=== PATIENT | male | born 1995 | race Caucasian/White ===

== ENCOUNTER 2016-11-23 11:23 | Emergency (ER) | payer OTHER ==
--- NOTE | 2016-11-23 11:50 | EDM.PDOC ---
ED HPI GENERAL MEDICAL PROBLEM - General Chief Complaint: Skin Complaint Stated Complaint: INFECTION Time Seen by Provider: 11/23/16 11:30 Source of Information: Reports: Patient History Limitations: Reports: No Limitations - History of Present Illness INITIAL COMMENTS - FREE TEXT/NARRATIVE: History of present illness: [21-year-old male presents with complaint of a small abscess at the top of his buttocks right at the crease at the base of his spine. Also complains of a right sided ear infection.] Review of systems: As per history of present illness and below otherwise all systems reviewed and negative. Past medical history: As per history of present illness and as reviewed below otherwise noncontributory. Surgical history: As per history of present illness and as reviewed below otherwise noncontributory. Social history: No reported history of drug or alcohol abuse. Family history: As per history of present illness and as reviewed below otherwise noncontributory. Physical exam: HEENT: Atraumatic, normocephalic, pupils reactive, negative for conjunctival pallor or scleral icterus, mucous membranes moist, right TM noted to be red dull and bulging, throat clear, neck supple, nontender, trachea midline. Lungs: Clear to auscultation, breath sounds equal bilaterally, chest nontender. Heart: S1S2, regular, negative for clicks, rubs, or JVD. Abdomen: Soft, nondistended, nontender. Negative for masses or hepatosplenomegaly. Negative for costovertebral tenderness. Pelvis: Stable nontender. Genitourinary: Deferred. Rectal: Deferred. Extremities: Atraumatic, negative for cords or calf pain. Neurovascular unremarkable. Neuro: Awake, alert, oriented. Cranial nerves II through XII unremarkable. Cerebellum unremarkable. Motor and sensory unremarkable throughout. Exam nonfocal. Skin: Cellulitic area at the top of the gluteal fissure at the base of the spine without bogginess apparent recent drainage present. Abscess to diffuse for effective I&D. Diagnostics: [] Therapeutics: [] Impression: [Cellulitis, otitis media right ear] Plan: [Antibiotics] Definitive disposition and diagnosis as appropriate pending reevaluation and review of above. Right Ear Pain Score (Numeric/FACES): 4 Sacral Pain Score (Numeric/FACES): 5 - Related Data Allergies Allergy/AdvReac Type Severity Reaction Status Date / Time No Known Allergies Allergy Verified 11/23/16 11:39 Home Meds: Home Meds Sulfamethoxazole/Trimethoprim [Bactrim Ds Tablet] 1 each PO BID #20 tablet 11/23 [Rx] Past Medical History - Past Health History Medical/Surgical History: Denies Medical/Surgical History Social & Family History - Family History Family Medical History: Noncontributory - Tobacco Use Smoking Status *Q: Never Smoker - Caffeine Use Caffeine Use: Reports: None - Recreational Drug Use Recreational Drug Use: No ED ROS GENERAL - Review of Systems Review Of Systems: See Below (See history of present illness) ED EXAM, SKIN/RASH Exam: See Below (History of present illness) Course - Vital Signs Last Recorded V/S: Last Vital Signs Temp 36.4 C 11/23/16 11:30 Pulse 118 H 11/23/16 11:30 Resp 18 11/23/16 11:30 BP 164/98 H 11/23/16 11:30 Pulse Ox 97 11/23/16 11:30 Departure - Departure Time of Disposition: 11:49 Disposition: Home, Self-Care 01 Condition: Good Clinical Impression: Abscess, Otitis media of right ear - Discharge Information Prescriptions: Sulfamethoxazole/Trimethoprim [Bactrim Ds Tablet] 1 each PO BID #20 tablet Forms: ED Department Discharge Additional Instructions: The following information is given to patients seen in the emergency department who are being discharged to home. This information is to outline your options for follow-up care. We provide all patients seen in our emergency department with a follow-up referral. The need for follow-up, as well as the timing and circumstances, are variable depending upon the specifics of your emergency department visit. If you don't have a primary care physician on staff, we will provide you with a referral. We always advise you to contact your personal physician following an emergency department visit to inform them of the circumstance of the visit and for follow-up with them and/or the need for any referrals to a consulting specialist. The emergency department will also refer you to a specialist when appropriate. This referral assures that you have the opportunity for follow-up care with a specialist. All of these measure are taken in an effort to provide you with optimal care, which includes your follow-up. Under all circumstances we always encourage you to contact your private physician who remains a resource for coordinating your care. When calling for follow-up care, please make the office aware that this follow-up is from your recent emergency room visit. If for any reason you are refused follow-up, please contact the [facility] Emergency Department at and asked to speak to the emergency department charge nurse. Take medication as directed Follow-up with PCP 1-2 days Return to ED as needed as discussed [facility] [address] [place] [id number]
== END 2016-11-23 11:55 | disposition home or self-care (01) ==
LOC: MW.ED 11:23
CPT/HCPCS: 99282; 99283

== ENCOUNTER 2020-06-03 18:42 | Emergency (ER) | payer OTHER ==
[2020-06-03] MEDS ORDERED: Ketorolac 30 MG/ML SDV IVPUSH ONE (19:16)
[2020-06-03] MEDS ORDERED: Ondansetron 4 MG/2 ML SDV IVPUSH ONE (19:16)
[2020-06-03] MEDS ORDERED: Sodium Chloride 0.9% 1,000 ML IV ONE (19:16)
[2020-06-03] MEDS ORDERED: Sodium Chloride 0.9% 2.5 ML Syringe FLUSH PRN (19:16)
[2020-06-03] MEDS ORDERED: Sodium Chloride 0.9% 10 ML Syringe FLUSH PRN (19:16)
--- NOTE | 2020-06-03 19:50 | EDM.PDOC ---
ED HPI GENERAL MEDICAL PROBLEM - General Chief Complaint: Back Pain or Injury Stated Complaint: LOWER BACK PAIN Time Seen by Provider: 06/03/20 19:12 - History of Present Illness INITIAL COMMENTS - FREE TEXT/NARRATIVE: HISTORY AND PHYSICAL: History of present illness: This is a 24-year-old gentleman with no significant past medical history presents ER today complaining of pain to his right flank rating to his right groin that started shortly prior to coming to the ER. Patient reports that the pain is constant in nature. Patient reports urinary symptoms with a sensation that he has to urinate out himself. Patient denies any dysuria, frequency, urgency, hematuria. Patient denies any chest pain or shortness of breath. Patient has any chest pain. Patient denies any shortness of breath. Patient reports he is nauseous with no emesis. Review of systems: As per history of present illness and below otherwise all systems reviewed and negative. Past medical history: As per history of present illness and as reviewed below otherwise noncontributory. Surgical history: As per history of present illness and as reviewed below otherwise noncontributory. Social history: No reported history of drug or alcohol abuse. Family history: As per history of present illness and as reviewed below otherwise noncontributory. Physical exam: Constitutional: Patient is oriented to person, place, and time. Appears well-developed and well-nourished. No distress. HEENT: Moist mucous membranes Head: Normocephalic and atraumatic Eyes: Right eye exhibits no discharge. Left eye exhibits no discharge. No scleral icterus Neck: Normal range of motion. No tracheal deviation present. Cardiovascular: Normal rate and regular rhythm. Pulmonary: Effort normal, no respiratory distress. Abd: Soft, nondistended, no rebound/guarding, no psoas or obturator signs, no tenderness at Mcberney's point, no Russell's sign. Pt does not present with an exam that would be consistent with an acute surgical abdomen at this time, mild tenderness palpation right flank and right lower quadrant. Musculoskeletal: Normal range of motion Neurologic: Alert and oriented to person, place and time. Skin: [place], warm and dry. Psychiatric: Normal mood and affect. Behavior is normal. Judgment and thought content normal. Nursing note and vital signs have been reviewed This patient was seen and evaluated during the 2019 SARS-CoV-2 novel coronavirus pandemic period. Community viral transmission is ongoing at time of this encounter and the emergency department is operating under pandemic response procedures. Diagnostics: CT scan of the abdomen pelvis Reveals numerous intrarenal calculi bilaterally in the 1 to 2 mm range. Right-sided obstructive uropathy due to 1 mm calculus in the distal right ureter located about 1.5 cm from the right UVJ. The examination is otherwise overall unremarkable. CBC, CMP within normal limits UA reveals significant amount of blood Therapeutics: Toradol 30 IV, NSS x1 L, Zofran 4 mg IV Assessment and plan: This is a 24-year-old gentleman with right flank and right lower quadrant abdominal pain who presents ER today with CT scan confirmed hydronephrosis. Patient has a small 1 mm stone in the distal right ureter. Patient be discharged home with a prescription for Flomax, Zofran, Motrin, Ultram and will be given referral for urology. Patient's pain appears to be well controlled at this time and does not appear to be in any acute distress. Patient is sleeping comfortably in bed upon my evaluation. This is an contrast to his mentation when he was unable to lay in bed comfortably. Reassessment at the time of disposition demonstrates that the patient is in no acute distress. The patient has remained stable throughout the entire ED visit and is without objective evidence for acute process requiring urgent intervention or hospitalization. The patient is stable for discharge, counseling is provided as documented above, discussed symptomatic treatment and specific conditions for return. I have spoken with the patient/caregiver and discussed todays findings, in addition to providing specific details for the plan of care. Questions are answered and there is agreement with the plan. Definitive disposition and diagnosis as appropriate pending reevaluation and review of above. R flank Pain Score (Numeric/FACES): 9 - Related Data Allergies Allergy/AdvReac Type Severity Reaction Status Date / Time No Known Allergies Allergy Verified 06/03/20 19:03 Home Meds: Home Meds Ibuprofen 600 mg PO Q6HR PRN #30 tablet 06/03/20 [Rx] Ondansetron [Zofran ODT] 4 mg PO Q6H PRN #12 tab.dis 06/03/20 [Rx] Tamsulosin HCl [Flomax] 0.4 mg PO BEDTIME #7 cap.er.24h 06/03/20 [Rx] traMADol [Ultram] 50 mg PO Q6H PRN #12 tab 06/03/20 [Rx] Past Medical History - Past Health History Medical/Surgical History: Denies Medical/Surgical History Social & Family History - Family History Family Medical History: No Pertinent Family History - Caffeine Use Caffeine Use: Reports: Energy Drinks - Recreational Drug Use Recreational Drug Use: No ED ROS GENERAL - Review of Systems Review Of Systems: See Below ED EXAM, GENERAL - Physical Exam Exam: See Below Course - Vital Signs Last Recorded V/S: Last Vital Signs Temp 96.8 F L 06/03/20 19:04 Pulse 81 06/03/20 19:04 Resp 18 06/03/20 19:04 BP 158/93 H 06/03/20 19:04 Pulse Ox 98 06/03/20 19:04 - Orders/Labs/Meds Orders: Active Orders 24 hr Category Date Time Status Sodium Chloride 0.9% [Saline Flush] Med 06/03/20 19:16 Active 10 ml FLUSH ASDIRECTED PRN Sodium Chloride 0.9% [Saline Flush] Med 06/03/20 19:16 Active 2.5 ml FLUSH ASDIRECTED PRN Saline Lock Insert [OM.PC] Stat Oth 06/03/20 19:16 Ordered Medication Orders Sodium Chloride (Saline Flush) 10 ml FLUSH ASDIRECTED PRN PRN Reason: Keep Vein Open Last Admin: 06/03/20 19:27 Dose: 10 ml Documented by: ADIA Sodium Chloride (Saline Flush) 2.5 ml FLUSH ASDIRECTED PRN PRN Reason: Keep Vein Open Last Admin: 06/03/20 19:27 Dose: 2.5 ml Documented by: ADIA Labs: Laboratory Tests 06/03/20 06/03/20 06/03/20 Range/Units 19:07 19:24 19:24 WBC 9.26 (4.0-11.0) K/uL RBC 5.62 (4.50-5.90) M/uL Hgb 16.3 (13.0-17.0) g/dL Hct 45.5 (38.0-50.0) % MCV 81.0 (80.0-98.0) fL MCH 29.0 (27.0-32.0) pg MCHC 35.8 (31.0-37.0) g/dL RDW Std Deviation 36.0 (28.0-62.0) fl RDW Coeff of Clarisse 12 (11.0-15.0) % Plt Count 201 (150-400) K/uL MPV 10.60 (7.40-12.00) fL Neut % (Auto) 65.4 (48.0-80.0) % Lymph % (Auto) 26.5 (16.0-40.0) % Eddy % (Auto) 7.1 (0.0-15.0) % Eos % (Auto) 0.6 (0.0-7.0) % Baso % (Auto) 0.4 (0.0-1.5) % Neut # (Auto) 6.1 H (1.4-5.7) K/uL Lymph # (Auto) 2.5 H (0.6-2.4) K/uL Eddy # (Auto) 0.7 (0.0-0.8) K/uL Eos # (Auto) 0.1 (0.0-0.7) K/uL Baso # (Auto) 0.0 (0.0-0.1) K/uL Sodium 143 (136-148) mmol/L Potassium 3.4 L (3.5-5.1) mmol/L Chloride 105 (98-107) mmol/L Carbon Dioxide 28.1 (21.0-32.0) mmol/L BUN 17 (7.0-18.0) mg/dL Creatinine 1.3 (0.8-1.3) mg/dL Est Cr Clr Drug Dosing TNP Estimated GFR (MDRD) > 60.0 ml/min Glucose 165 H (74-106) mg/dL Calcium 9.4 (8.5-10.1) mg/dL Total Bilirubin 0.3 (0.2-1.0) mg/dL AST 29 (15-37) IU/L ALT 60 (14-63) IU/L Alkaline Phosphatase 72 (46-116) U/L Total Protein 7.4 (6.4-8.2) g/dL Albumin 4.5 (3.4-5.0) g/dL Globulin 2.9 (2.6-4.0) g/dL Albumin/Globulin Ratio 1.6 (0.9-1.6) Urine Color YELLOW Urine Appearance HAZY Urine pH 7.0 (5.0-8.0) Ur Specific [place] 1.025 (1.001-1.035) Urine Protein NEGATIVE (NEGATIVE) mg/dL Urine Glucose (UA) NEGATIVE (NEGATIVE) mg/dL Urine Ketones NEGATIVE (NEGATIVE) mg/dL Urine Occult Blood LARGE H (NEGATIVE) Urine Nitrite NEGATIVE (NEGATIVE) Urine Bilirubin NEGATIVE (NEGATIVE) Urine Urobilinogen 0.2 (<2.0) EU/dL Ur Leukocyte Esterase NEGATIVE (NEGATIVE) Urine RBC 35-40 (0-2/HPF) Urine WBC 2-4 (0-5/HPF) Ur Epithelial Cells FEW (NONE-FEW) Amorphous Sediment MODERATE (NEGATIVE) Urine Bacteria FEW (NEGATIVE) Meds: Medications Generic Name Dose Route Start Last Admin Trade Name Freq PRN Reason Stop Dose Admin Sodium Chloride 10 ml 06/03/20 19:16 06/03/20 19:27 Saline Flush FLUSH 10 ml ASDIRECTED PRN Administration Keep Vein Open Sodium Chloride 2.5 ml 06/03/20 19:16 06/03/20 19:27 Saline Flush FLUSH 2.5 ml ASDIRECTED PRN Administration Keep Vein Open Discontinued Medications Generic Name Dose Route Start Last Admin Trade Name Freq PRN Reason Stop Dose Admin Sodium Chloride 1,000 mls @ 999 mls/hr 06/03/20 19:16 06/03/20 19:27 Normal Saline IV 06/03/20 20:16 999 mls/hr .Bolus ONE Administration Ketorolac Tromethamine 30 mg 06/03/20 19:16 06/03/20 19:26 Toradol IVPUSH 06/03/20 19:17 30 mg ONETIME ONE Administration Ondansetron HCl 4 mg 06/03/20 19:16 06/03/20 19:27 Zofran IVPUSH 06/03/20 19:17 4 mg ONETIME ONE Administration Departure - Departure Time of Disposition: 20:39 Disposition: Home, Self-Care 01 Condition: Good Clinical Impression: Hydronephrosis of right kidney, Renal colic on right side - Discharge Information Instructions: Renal Colic, [id number] Referrals: PCP,None [Primary Care Provider] - Forms: ED Department Discharge Additional Instructions: Your seen and evaluated in the ER today secondary to pain in your right side. The work-up in the emergency department reveals that you do have multiple small stones in both kidneys. As long as the stones remain in the kidneys, they are asymptomatic and should not be causing any pain. However, you did have in addition a 1 mm stone in the distal right ureter that was approximately 1-1/2 cm above the bladder. This stone in the ureter has caused swelling of your kidney called hydronephrosis. This is the stone that is causing the pain and discomfort that brought you to the ER today. You will be discharged home with a prescription for Flomax, this is a medicine used to help push stones out of the ureter. You will also be given a prescription for ibuprofen and Ultram for pain. You will be given a prescription for Zofran for nausea. [facility] - Urology [address] [place] [id number] Please call the urology clinic to make an appointment to see one of our urologist to assist you with long-term management of your kidney stones. The following information is given to patients seen in the emergency department who are being discharged to home. This information is to outline your options for follow-up care. We provide all patients seen in our emergency department with a follow-up referral. The need for follow-up, as well as the timing and circumstances, are variable depending upon the specifics of your emergency department visit. If you don't have a primary care physician on staff, we will provide you with a referral. We always advise you to contact your personal physician following an emergency department visit to inform them of the circumstance of the visit and for follow-up with them and/or the need for any referrals to a consulting specialist. The emergency department will also refer you to a specialist when appropriate. This referral assures that you have the opportunity for follow-up care with a specialist. All of these measure are taken in an effort to provide you with optimal care, which includes your follow-up. Under all circumstances we always encourage you to contact your private physician who remains a resource for coordinating your care. When calling for follow-up care, please make the office aware that this follow-up is from your recent emergency room visit. If for any reason you are refused follow-up, please contact the [facility] Emergency Department at and asked to speak to the emergency department charge nurse. [facility] - [facility] [address], [place] [address] [facility] [address] [place] [address] Sepsis Event Note (ED) - Evaluation Sepsis Screening Result: No Definite Risk - Focused Exam Vital Signs: Vital Signs Temp Pulse Resp BP Pulse Ox 06/03/20 19:04 96.8 F L 81 18 158/93 H 98 - My Orders Last 24 Hours: My Active Orders 06/03/20 19:16 Sodium Chloride 0.9% [Saline Flush] 10 ml FLUSH ASDIRECTED PRN Sodium Chloride 0.9% [Saline Flush] 2.5 ml FLUSH ASDIRECTED PRN Saline Lock Insert [OM.PC] Stat - Assessment/Plan Last 24 Hours: My Active Orders 06/03/20 19:16 Sodium Chloride 0.9% [Saline Flush] 10 ml FLUSH ASDIRECTED PRN Sodium Chloride 0.9% [Saline Flush] 2.5 ml FLUSH ASDIRECTED PRN Saline Lock Insert [OM.PC] Stat
[2020-06-03 20:16] LABS: BLOOD UREA NITROGEN,BUN 17 mg/dL (7.0-18.0); CARBON DIOXIDE,CO2 28.1 mmol/L (21.0-32.0); CHLORIDE,CL 105 mmol/L (98-107); GLUCOSE RANDOM 165 mg/dL (74-106); POTASSIUM,K 3.4 mmol/L (3.5-5.1); SODIUM,NA 143 mmol/L (136-148)
--- NOTE | 2020-06-03 20:28 | CT ---
INDICATION: Right flank pain COMPARISON: None TECHNIQUE: CT examination of the abdomen and pelvis was performed without intravenous contrast. Thin section axial images were obtained from the lung bases through the pubic symphysis. Oral contrast was not administered. Please note that all CT scans at this facility use dose modulation, iterative reconstruction, and/or weight-based dosing when appropriate to reduce radiation dose to as low as reasonably achievable. FINDINGS: LUNG BASES: The lung bases as visualized appear normal.The heart size is normal at the lung bases. LIVER/BILIARY SYSTEM:Hepatic steatosis. No focal mass or biliary ductal dilatation. Unremarkable appearing gallbladder. ADRENALS: Normal non-contrast appearance KIDNEYS, URETERS and BLADDER:Numerous intrarenal calculi bilaterally in the 1-2 millimeter range. Right hydronephrosis and right hydroureter. This is due to a 1 millimeter calculus in the distal right ureter. This is seen on axial image 163 dislocated by 1.5 centimeters from the right ureterovesical junction. Other pelvic calcifications are not within the urinary system SPLEEN:This is due to a 1 millimeter calculus in the distal right ureter. This is seen on axial image 163 PANCREAS: Normal non-contrast appearance. RETROPERITONEUM and MESENTERY: There is no mass, adenopathy or aortic aneurysm. GASTROINTESTINAL SYSTEM: There is no evidence of diverticulitis, colitis, mechanical obstruction, or appendicitis. The small bowel as visualized appears normal. PELVIS: No mass, adenopathy or free fluid. OSSEOUS STRUCTURES and ABDOMINAL WALL: There is an age-appropriate appearance of the osseous structures.No significant abdominal wall defect. OTHER: No free fluid or free air. IMPRESSION: 1. Numerous intrarenal calculi bilaterally in the 1-2 millimeter range 2. Right-sided obstructive uropathy due to a 1 millimeter calculus in the distal right ureter located about 1.5 centimeters from the right ureterovesical junction 3. The examination is otherwise overall unremarkable appearing Please note that all CT scans at this facility use dose modulation, iterative reconstruction, and/or weight-based dosing when appropriate to reduce radiation dose to as low as reasonably achievable. Dictated by Boyd Palumbo MD @ Jun 03 2020 8:19PM Signed by Dr. Boyd Palumbo @ Jun 03 2020 8:26PM
[2020-06-03 20:58] VITALS: BP 152/80; PULSE 97
== END 2020-06-03 20:55 | disposition home or self-care (01) ==
LOC: MW.ED 18:42
DX: N13.2 Hydronephrosis with renal and ureteral calculous obstruction (principal)
CPT/HCPCS: 74176; 80053; 81001; 85025; 96374; 96375; 99284; J1885; J2405; J7030; 99283

== ENCOUNTER 2021-10-31 04:43 | Emergency (ER) | payer OTHER ==
[2021-10-31] MEDS ORDERED: Morphine 4 MG/ML VIAL IVPUSH ONE (05:03)
[2021-10-31] MEDS ORDERED: Ondansetron 4 MG/2 ML SDV IVPUSH ONE (05:03)
[2021-10-31] MEDS ORDERED: Ketorolac 30 MG/ML SDV IVPUSH ONE (05:03)
[2021-10-31] MEDS ORDERED: Sodium Chloride 0.9% 1,000 ML IV ONE (05:03)
[2021-10-31 05:44] LABS: BLOOD UREA NITROGEN,BUN 16 mg/dL (7.0-18.0); CARBON DIOXIDE,CO2 24.4 mmol/L (21.0-32.0); CHLORIDE,CL 105 mmol/L (98-107); GLUCOSE RANDOM 134 mg/dL (74-106); LIPASE 119 U/L (73-393); POTASSIUM,K 4.1 mmol/L (3.5-5.1); SODIUM,NA 141 mmol/L (136-148)
[2021-10-31 05:46] LABS: ESTIMATED GFR > 60.0 ml/min
[2021-10-31 08:50] VITALS: BP 147/92; PULSE 81
== END 2021-10-31 08:48 | disposition home or self-care (01) ==
LOC: MW.ED 04:43
DX: N13.2 Hydronephrosis with renal and ureteral calculous obstruction (principal); Z79.899 Other long term (current) drug therapy
CPT/HCPCS: 36415; 74176; 80053; 81003; 83690; 85025; 96361; 96374; 96375; 99284; J1885; J2270; J2405; J7030

== ENCOUNTER 2022-05-13 14:16 | Emergency (ER) | payer OTHER ==
[2022-05-13 14:35] VITALS: PULSE 95
[2022-05-13] MEDS ORDERED: Ketorolac 30 MG/ML SDV IVPUSH ONE (15:02)
[2022-05-13] MEDS ORDERED: Sodium Chloride 0.9% 1,000 ML IV ONE (15:31)
[2022-05-13 16:35] VITALS: BP 151/63
== END 2022-05-13 16:33 | disposition home or self-care (01) ==
LOC: MW.ED 14:16
DX: N20.0 Calculus of kidney (principal)
CPT/HCPCS: 96361; 96374; 99284; J1885; J7030

== ENCOUNTER 2024-04-22 10:23 | Emergency (ER) | payer OTHER ==
[2024-04-22] MEDS ORDERED: Sodium Chloride 0.9% 2.5 ML Syringe FLUSH PRN (10:35)
[2024-04-22] MEDS: Sodium Chloride 0.9% 10 ML Syringe FLUSH PRN (10:45)
[2024-04-22] MEDS: Ondansetron 4 MG/2 ML SDV IVPUSH STA (10:45)
[2024-04-22] MEDS: Ketorolac 30 MG/ML SDV IVPUSH STA (10:45)
[2024-04-22 10:47] LABS: BASOPHILS ABSOLUTE AUTO 0.02 K/uL (0.00-0.20); BASOPHILS PERCENT AUTO 0.3 % (0.0-1.0); EOSINOPHILS ABSOLUTE AUTO 0.06 K/uL (0.00-0.45); HEMATOCRIT 49.1 % (42.0-52.0); HEMOGLOBIN 17.4 g/dL (14.0-18.0); IMMATURE GRAN ABSOLUTE AUTO 0.02 K/uL (0.00-0.05); IMMATURE GRAN PERCENT AUTO 0.3 % (0.0-0.4); LYMPHOCYTES ABSOLUTE AUTO 2.08 K/uL (1.00-4.80); LYMPHOCYTES PERCENT AUTO 35.7 % (24.0-44.0); MEAN CORPUSCULAR HEMOGLOBIN 28.5 pg (28.0-32.0); MEAN CORPUSCULAR HGB CONC 35.4 g/dL (32.0-36.0); MEAN CORPUSCULAR VOLUME 80.4 fL (83.0-99.0); MONOCYTES ABSOLUTE AUTO 0.59 K/uL (0.00-0.80); MONOCYTES PERCENT AUTO 10.1 % (0.0-8.0); NEUTROPHILS ABSOLUTE AUTO 3.05 K/uL (1.80-7.70); NEUTROPHILS PERCENT AUTO 52.6 % (41.0-71.0); PLATELET COUNT,PLT 224 K/uL (150-400); RED BLOOD CELL COUNT 6.11 M/uL (4.52-5.90); WHITE BLOOD CELL COUNT,WBC 5.82 K/uL (3.9-11.3)
[2024-04-22 10:49] LABS: APPEARANCE,URINE CLEAR; BILIRUBIN,URINE NEGATIVE (NEGATIVE); COLOR,URINE YELLOW; GLUCOSE,URINE NEGATIVE (NEGATIVE); KETONES,URINE NEGATIVE (NEGATIVE); LEUKOCYTE ESTERASE,URINE NEGATIVE (NEGATIVE); NITRITE,URINE NEGATIVE (NEGATIVE); OCCULT BLOOD,URINE TRACE-INTACT (NEGATIVE); PH,URINE 5.5 (5.0-8.0); PROTEIN,URINE NEGATIVE (NEGATIVE); UROBILINOGEN,URINE 0.2 EU/dL (<2.0)
[2024-04-22 11:12] LABS: A/G RATIO 1.4 (0.9-1.6); ALBUMIN 4.3 g/dL (3.4-5.0); BILIRUBIN TOTAL 0.6 mg/dL (0.2-1.0); CALCIUM 9.1 mg/dL (8.5-10.1); CARBON DIOXIDE,CO2 30.9 mmol/L (21.0-32.0); CREATININE 1.3 mg/dL (0.8-1.3); EST CRCL DRUG DOSING (CG) 84.6 mL/min; POTASSIUM,K 4.2 mmol/L (3.5-5.1); PROTEIN TOTAL,TP 7.4 g/dL (6.4-8.2)
[2024-04-22 11:21] LABS: BACTERIA,URINE FEW (NEGATIVE); EPITHELIAL CELLS,URINE OCCASIONAL (NONE-FEW); RBC,URINE 0-1 (0-2/HPF); WBC,URINE 0-2 (0-5/HPF)
[2024-04-22 13:43] VITALS: BP 140/90; PULSE 90
== END 2024-04-22 13:43 | disposition home or self-care (01) ==
LOC: MW.ED 10:23
DX: N13.2 Hydronephrosis with renal and ureteral calculous obstruction (principal); Z79.899 Other long term (current) drug therapy; Z75.8 Other problems related to medical facilities and other health care
CPT/HCPCS: 36415; 74176; 80053; 81001; 83690; 85025; 96374; 96375; 99284; J1885; J2405; J3490